=== PATIENT | male | born 1945 | race Caucasian/White ===

== ENCOUNTER 2017-06-10 05:26 | Inpatient (IN) | payer OTHER ==
[~2017-06-10] VITALS: Ht 177.8 cm; Wt 93.0 kg
[2017-06-10] MEDS ORDERED: POLYMYXIN 500,000/BACIT.10,000 UNITS in NS IRR 1 L IR ONE (06:54)
[2017-06-10] MEDS ORDERED: LR 1,000 ML IV SCH (08:10)
[2017-06-10] MEDS ORDERED: ROPIVACAINE 0.2% 550 ML INJ SCH (08:12)
[2017-06-10] MEDS ORDERED: ONDANSETRON HCL 4 MG/2 ML VIAL IVP PRN ×5 (08:15→08:45)
[2017-06-10] MEDS ORDERED: DIPHENHYDRAMINE INJ 50 MG/ML VIAL IVP PRN ×4 (08:15→08:45)
[2017-06-10] MEDS ORDERED: HYDROmorphone 2 MG/ML VIAL IVP PRN ×2 (08:15)
[2017-06-10] MEDS ORDERED: HYDROmorphone 1 MG INJ. 1 MG/ML AMPUL IVP PRN ×5 (08:15→08:45)
[2017-06-10] MEDS ORDERED: NALBUPHINE HCL 10 MG/ML AMP IVP PRN ×4 (08:15→08:45)
[2017-06-10] MEDS ORDERED: MEPERIDINE HCL/PF 25 MG/ML DISP.SYRIN IVP PRN ×2 (08:15)
[2017-06-10] MEDS ORDERED: ROPIVACAINE 0.2% 100 ML INJ SCH (08:33)
[2017-06-10] MEDS: ROPIVACAINE 0.2% 100 ML INJ SCH ×2 (08:33→23:10)
[2017-06-10] MEDS ORDERED: ROPIVACAINE 0.2% 100 ML ONE (08:44)
[2017-06-10] MEDS ORDERED: D5/0.45 NS 1,000 ML IV ONE (09:34)
[2017-06-10] MEDS ORDERED: ACETAMINOPHEN 325 MG TABLET PO PRN (09:45)
[2017-06-10] MEDS ORDERED: BISACODYL 10 MG/SUPPOSITORY RC PRN (09:45)
[2017-06-10] MEDS ORDERED: CEFAZOLIN 1 GM IVPB PREMIX 50 ML IV SCH (09:45)
[2017-06-10 10:45] VITALS: BP_SYST 144
[2017-06-10 10:46] VITALS: BP_SYST 144
[2017-06-10] MEDS: CEFAZOLIN SOD 1 GM/ ISO 50 ML PREMIX IV SCH ×2 (14:44→20:44)
[2017-06-10 16:37] VITALS: BP_SYST 106
[2017-06-10 20:00] VITALS: BP_SYST 128
[2017-06-11] VITALS: BP_SYST 112
[2017-06-11 04:00] VITALS: BP_SYST 134
[2017-06-11] MEDS: HYDROcodone/ACETAMIN 7.5-325 MG TAB PO PRN ×2 (04:51→13:24)
[2017-06-11 06:49] LABS: BASOPHILS % (AUTO) 0.4 % (0.0-2.0); EOSINOPHILS % (AUTO) 0.1 % (0.0-4.0); HEMATOCRIT 35.9 % (36-54); LYMPHOCYTES # (AUTO) 1.6 K/uL (1.0-5.5); LYMPHOCYTES % (AUTO) 19.3 % (20.5-51.5); MEAN CORPUSCULAR HEMOGLOBIN 28 pg (27-31); MEAN CORPUSCULAR HGB CONC 33 % (32-36); MEAN CORPUSCULAR VOLUME 83 fL (79.0-98.0); MONOCYTES # (AUTO) 0.9 K/uL (0.0-1.0); MONOCYTES % (AUTO) 10.6 % (1.7-9.3); NEUTROPHILS % (AUTO) 69.6 % (40.0-70.0); PLATELET COUNT (AUTO) 202 K/uL (130-430); RED BLOOD CELL COUNT(AUTO) 4.31 MIL/uL (4.2-6.2); RED CELL DISTRIBUTION WIDTH 14.5 % (9.0-15.0); WHITE BLOOD COUNT (AUTO) 8.5 K/uL (4.8-10.8)
[2017-06-11 06:55] LABS: ALBUMIN 3.2 g/dL (3.4-4.8); CALCIUM 8.5 mg/dL (8.4-11.0); CREATININE 1.02 mg/dL (0.55-1.30); POTASSIUM 3.8 mmol/L (3.5-5.1); TOTAL BILIRUBIN 0.7 mg/dL (0.0-1.0)
[2017-06-11 09:10] VITALS: BP_SYST 119
[2017-06-11] MEDS: RIVAROXABAN 10 MG TABLET PO SCH (09:15)
[2017-06-11 11:16] VITALS: BP_SYST 109
[2017-06-11] MEDS: ROPIVACAINE 0.2% 100 ML INJ SCH ×2 (11:47→22:34)
[2017-06-11] MEDS: MORPHINE SULFATE 10 MG/ML VIAL IM PRN (15:03)
[2017-06-11 15:30] VITALS: BP_SYST 149
[2017-06-11 20:00] VITALS: BP_SYST 119
[2017-06-12 00:10] VITALS: BP_SYST 135
[2017-06-12] MEDS: MORPHINE SULFATE 10 MG/ML VIAL IM PRN (00:34)
[2017-06-12 03:34] VITALS: BP_SYST 126
[2017-06-12 08:00] VITALS: BP_SYST 117
[2017-06-12] MEDS: RIVAROXABAN 10 MG TABLET PO SCH (08:48)
[2017-06-12] MEDS: HYDROcodone/ACETAMIN 7.5-325 MG TAB PO PRN ×2 (09:44→18:01)
[2017-06-12] MEDS: ROPIVACAINE 0.2% 100 ML INJ SCH (10:33)
[2017-06-12 12:00] VITALS: BP_SYST 108
[2017-06-12 16:23] VITALS: BP_SYST 139
[2017-06-12 16:37] VITALS: BP_SYST 139
== END 2017-06-12 18:00 | disposition home or self-care (01) | DRG 470 ==
LOC: SMU 05:26 → STU 10:34 → SMU 23:28
PROVIDERS: ADMIT Orthopaedic Surgery; ATTEND Orthopaedic Surgery
PROC: 0SRD0J9 Replacement of Left Knee Joint with Synthetic Substitute, Cemented, Open Approach (ICD-10-PCS; principal; 2017-06-10 07:30)
DX: M17.12 Unilateral primary osteoarthritis, left knee (principal)
CPT/HCPCS: 36415; 80053; 85025; 87081; 88305; 88311; 93005; 97039; 97110-GP; 97116-GP; 97530-GP; C1713; C1776; J0690; J1170; J2270; J2795; J7050; J7120